=== PATIENT | female | born 1965 | race Two or more races ===

== ENCOUNTER 2017-01-17 16:39 | Emergency (ER) | payer OTHER ==
[~2017-01-17] VITALS: Ht 154.9 cm; Wt 66.7 kg
[2017-01-17 16:39] VITALS: BP 127/78
[~2017-01-17 16:39] MED LIST: CLON0.5T PO; ESCI5TAB PO
== END 2017-01-17 18:44 | disposition home or self-care (01) ==
LOC: ER 16:41
DX: S63.601A Unspecified sprain of right thumb, initial encounter (principal); F32.9 Major depressive disorder, single episode, unspecified; Z88.5 Allergy status to narcotic agent; X58.XXXA Exposure to other specified factors, initial encounter; Y93.89 Activity, other specified; Y92.89 Other specified places as the place of occurrence of the external cause; Y99.8 Other external cause status
CPT/HCPCS: 73130-TC; A4606; J1885; Z7610

== ENCOUNTER 2018-08-02 15:02 | Emergency (ER) | payer OTHER ==
[~2018-08-02] VITALS: Ht 154.9 cm; Wt 63.5 kg
[2018-08-02 15:02] VITALS: BP 145/80
== END 2018-08-02 17:31 | disposition home or self-care (01) ==
LOC: ER 15:06
DX: R05 Cough (principal); F32.9 Major depressive disorder, single episode, unspecified; Z88.6 Allergy status to analgesic agent; Z79.899 Other long term (current) drug therapy
CPT/HCPCS: 71045-TC

== ENCOUNTER 2019-03-12 11:59 | Emergency (ER) | payer OTHER ==
[~2019-03-12] VITALS: Ht 154.9 cm; Wt 59.0 kg
--- NOTE | 2019-03-12 12:06 | NUR ---
CAME IN FOR HEADACHE/DIZZINESS S/P HEAD INJURY SUNDAY, TO ER BED 10, HOOKED TO MONITOR, CHANGED TO [facility], AWAITING MD RUTHERFORD
--- NOTE | 2019-03-12 12:26 | NUR ---
YE SAWANT AT BEDSIDE
--- NOTE | 2019-03-12 12:35 | NUR ---
WHEELED OUT VIA RNEY FOR CT SCAN
[2019-03-12] MEDS ORDERED: KETOROLAC TROMETHAMINE INJ 30 MG/ML VIAL ONE (12:55)
[2019-03-12] MEDS ORDERED: KETOROLAC TROMETHAMINE INJ 60 MG/2 ML VIAL IM ONE (13:00)
--- NOTE | 2019-03-12 13:05 | NUR ---
Patient discharged to home in stable condition. Written and verbal after care instructions given. Patient verbalizes understanding of instruction. patient in waiting room to wait for the CD.
--- NOTE | 2019-03-12 13:08 | NUR ---
CD OF IMAGES PROVIDED TO PATIENT
[2019-03-12 13:09] VITALS: BP 132/81
== END 2019-03-12 13:09 | disposition home or self-care (01) ==
LOC: ER 11:59
DX: S06.0X0A Concussion without loss of consciousness, initial encounter (principal); F32.9 Major depressive disorder, single episode, unspecified; Z88.6 Allergy status to analgesic agent; Z79.899 Other long term (current) drug therapy; W22.8XXA Striking against or struck by other objects, initial encounter; Y93.89 Activity, other specified; Y92.89 Other specified places as the place of occurrence of the external cause; Y99.8 Other external cause status
CPT/HCPCS: 70450; 96372; 99284; J1885

== ENCOUNTER 2019-05-26 15:12 | Emergency (ER) | payer OTHER ==
[~2019-05-26] VITALS: Ht 157.5 cm; Wt 65.8 kg
--- NOTE | 2019-05-26 16:27 | NUR ---
pt to bed 7
--- NOTE | 2019-05-26 16:30 | NUR ---
Nausea, vomiting, and epigastric pain x 4 days, pt awake, alert, -sob, nad noted, vss, pending md enrique
[2019-05-26 16:45] LABS: BASOPHILS % (AUTO) 0.7 % (0.0-2.0); EOSINOPHILS % (AUTO) 0.4 % (0.0-6.0); HEMATOCRIT 41 % (33-45); HEMOGLOBIN 13.7 g/dL (11.5-14.8); LYMPHOCYTES # (AUTO) 1.6 /CMM (0.8-4.8); LYMPHOCYTES % (AUTO) 25.1 % (20.0-44.0); MEAN CORPUSCULAR HGB CONC 33 g/dl (31.0-36.0); MEAN CORPUSCULAR VOLUME 89 fL (82-100); MONOCYTES # (AUTO) 0.4 /CMM (0.1-1.30); MONOCYTES % (AUTO) 5.5 % (2.0-12.0); NEUTROPHILS # (AUTO) 4.4 /CMM (1.8-8.9); NEUTROPHILS % (AUTO) 68.3 % (43.0-81.0); PLATELET COUNT (AUTO) 265 /CMM (150-450); RED BLOOD CELL COUNT(AUTO) 4.64 MIL/uL (4.0-5.2); WHITE BLOOD COUNT (AUTO) 6.5 K/uL (4.3-11.0)
--- NOTE | 2019-05-26 16:45 | NUR ---
PT. 53 Y OLD AWAKE AND ALERT IN ER ROOM # 6 REFUSED ABG AND BIPAP USE ER INFORMED AND PT. CONVICTED TO USE BIPAP FOR SAFETY, BUT PT. STILL REFUSING THE ABG, BIPAP PLACED ON AT 1645 WITH NOTED SETTINGS, AND PLUGGED TO RED OUT LET AND ALARMS ARE SET AND FUNCTIONAL. B/S BILATERALLY DIMINISHED AND AMBU BAG REMAIN AT THE BEDSIDE. PT. SUDHAKAR. BIPAP AND EDUCATED ABOUT THE MACHINE. CONTINUE TO MONITOR. Addendum: 05/26/19 at 1831 by ALEJANDRA FIGUEROA RT Amended: Links added. Addendum: 05/26/19 at 1852 by ALEJANDRA FIGUEROA RT ERROR FOR WRONG PT. CORRECTION BY RT
[2019-05-26] MEDS ORDERED: ONDANSETRON HCL/PF 4 MG/2 ML VIAL ONE (16:49)
[2019-05-26 16:58] LABS: CALCIUM, SERUM 9.1 mg/dL (8.5-10.1); CARBON DIOXIDE 26 mmol/L (21-32); CHLORIDE 104 mmol/L (98-107); CREATININE 0.6 mg/dL (0.6-1.3); GLUCOSE 97 mg/dL (74-106); POTASSIUM 3.7 mmol/L (3.5-5.1); SODIUM SERUM 141 mmol/L (136-145); UREA NITROGEN, BLOOD 10 mg/dL (7-18)
[2019-05-26] MEDS ORDERED: IV NS 0.9% 1,000 ML BAG IV ONE (17:00)
[2019-05-26] MEDS ORDERED: ONDANSETRON HCL/PF 4 MG/2 ML VIAL IVP ONE (17:00)
[2019-05-26 17:01] LABS: ALANINE AMINOTRANSFERASE 28 U/L (12-78); ALBUMIN 4.2 g/dL (3.4-5.0); ALKALINE PHOSPHATASE 38 U/L (46-116); ASPARTATE AMINOTRANSFERASE 17 U/L (15-37); BILIRUBIN,DIRECT 0.1 mg/dL (0.0-0.2); BILIRUBIN,TOTAL 0.3 mg/dL (0.2-1.0); LIPASE 108 U/L (73-393); TOTAL PROTEIN, SERUM 7.6 g/dL (6.4-8.2)
--- NOTE | 2019-05-26 18:20 | NUR ---
Patient discharged to home in stable condition. Written and verbal after care instructions given. Patient verbalizes understanding of instruction. IV removed. Catheter intact and site benign. Pressure and 4x4 applied to site. No bleeding noted.
[2019-05-26 19:00] VITALS: BP 139/85
== END 2019-05-26 19:17 | disposition home or self-care (01) ==
LOC: ER 15:17
DX: K29.70 Gastritis, unspecified, without bleeding (principal); F32.9 Major depressive disorder, single episode, unspecified; Z88.5 Allergy status to narcotic agent; Z79.899 Other long term (current) drug therapy
CPT/HCPCS: 36415; 71045; 76705; 80048; 80076; 83690; 84484; 85025; 96361; 96374; 99284; J2405; J7030

== ENCOUNTER 2022-01-07 16:09 | Emergency (ER) | payer OTHER ==
[~2022-01-07] VITALS: Ht 154.9 cm; Wt 62.1 kg
[2022-01-07] MEDS ORDERED: IV NS 0.9% 1,000 ML BAG IV ONE (16:30)
[2022-01-07] MEDS ORDERED: DIPHENHYDRAMINE HCL 12.5 MG/5 ML UDC PO ONE (16:30)
[2022-01-07] MEDS ORDERED: PROCHLORPERAZINE EDISYLATE 10 MG/2 ML VIAL IVP ONE (16:30)
[2022-01-07] MEDS ORDERED: ACETAMINOPHEN ES 500 MG TABLET PO ONE (16:30)
--- NOTE | 2022-01-07 16:30 | NUR ---
RECEIVED PT 56 YRS FEMALE WALKING FROM HOME C/O dizzness and nusea for one week awake and alert
--- NOTE | 2022-01-07 16:45 | NUR ---
SEEN BY DR. SEAY
[2022-01-07] MEDS ORDERED: ACETAMINOPHEN ES 500 MG TABLET ONE (16:47)
[2022-01-07] MEDS ORDERED: PROCHLORPERAZINE EDISYLATE 10 MG/2 ML VIAL ONE (16:47)
[2022-01-07] MEDS ORDERED: diphenhydrAMINE HCL 25 MG CAPSULE ONE (16:48)
--- NOTE | 2022-01-07 16:50 | NUR ---
TO CT SCAN OF HEAD VIA TONIE ZARATE VS
--- NOTE | 2022-01-07 17:00 | NUR ---
INSERTED ANGO CATHETER G 18 ON LT AC BLOOD DROW AND SENT TO LAB UA SENT TO LAB
--- NOTE | 2022-01-07 18:52 | NUR ---
DINESES ANY DIZZNESS IMPROVING AND FELLING BEATTER D/C INSTRACTION GIVEN TO PT FULLY VERBLIZED UNDERSTOOD D/C HOME NO DIZZNESS NO WEEKNESS
[2022-01-07 19:12] VITALS: BP 150/94
== END 2022-01-07 19:14 | disposition home or self-care (01) ==
LOC: ER 16:12
DX: R51.9 Headache, unspecified (principal); R42 Dizziness and giddiness; Z88.6 Allergy status to analgesic agent
CPT/HCPCS: 99284; 96374; 70450; 96361; J0780; Q0163 ×2; J7030

== ENCOUNTER 2024-05-22 20:00 | Emergency (ER) | payer OTHER ==
[~2024-05-22] VITALS: Ht 154.9 cm; Wt 70.8 kg
[2024-05-22 20:45] LABS: BASOPHILS % (AUTO) 0.9 % (0.0-2.0); EOSINOPHILS % (AUTO) 0.8 % (0.0-6.0); HEMATOCRIT 40 % (33-45); HEMOGLOBIN 13.3 g/dL (11.5-14.8); LYMPHOCYTES # (AUTO) 2.2 K/uL (0.8-4.8); LYMPHOCYTES % (AUTO) 41.7 % (20.0-44.0); MEAN CORPUSCULAR HEMOGLOBIN 30 PG (26.0-33.0); MEAN CORPUSCULAR HGB CONC 33 g/dl (31.0-36.0); MEAN CORPUSCULAR VOLUME 89 fL (82-100); MONOCYTES # (AUTO) 0.4 K/uL (0.1-1.30); NEUTROPHILS # (AUTO) 2.5 K/uL (1.8-8.9); NEUTROPHILS % (AUTO) 48.6 % (43.0-81.0); PLATELET COUNT (AUTO) 248 K/uL (150-450); RED BLOOD CELL COUNT(AUTO) 4.45 MIL/uL (4.0-5.2); RED CELL DISTRIBUTION WIDTH 13.4 % (11.5-15.0); WHITE BLOOD COUNT (AUTO) 5.2 K/uL (4.3-11.0)
[2024-05-22] MEDS: PROCHLORPERAZINE EDISYLATE 10 MG/2 ML VIAL IM/IV ONE (20:46)
[2024-05-22] MEDS: IV NS 0.9% 1,000 ML BAG IV ONE (20:46)
[2024-05-22] MEDS: diphenhydrAMINE HCL 50 MG/ML VIAL IV ONE (20:46)
[2024-05-22 20:58] LABS: BILIRUBIN,DIRECT 0.1 mg/dL (0.0-0.2); BILIRUBIN,TOTAL 0.2 mg/dL (0.2-1.0); CALCIUM, SERUM 9.5 mg/dL (8.5-10.1); CREATININE 0.6 mg/dL (0.6-1.3); POTASSIUM 4.1 mmol/L (3.5-5.1); TOTAL PROTEIN, SERUM 7.2 g/dL (6.4-8.2)
[2024-05-22] MEDS ORDERED: SUMA50TA PO (22:06)
[2024-05-22 22:11] VITALS: BP 151/91; TEMP 98.2; O2SAT 100
== END 2024-05-22 22:12 | disposition home or self-care (01) ==
LOC: ER 20:08
DX: R51.9 Headache, unspecified (principal); H92.01 Otalgia, right ear; R07.9 Chest pain, unspecified; R10.13 Epigastric pain; F32.A Depression, unspecified; Z79.899 Other long term (current) drug therapy; Z88.5 Allergy status to narcotic agent
CPT/HCPCS: 99285; 96374; 70450; 71045; 96361; 96375; 85025; 80048; 80076; 36415; J0780; J1200; J7030